=== PATIENT | female | born 1950 | race Caucasian/White ===

== ENCOUNTER 2020-02-02 17:27 | Emergency (ER) | payer MEDICARE ==
[~2020-02-02] VITALS: Ht 152.4 cm; Wt 70.8 kg
[2020-02-02] MEDS ORDERED: CYMBALTA60 M1 PO (19:01)
[2020-02-02 20:35] LABS: BASO # 0.1 (0.02-0.10); EOS # 0.4 (0.04-0.40); EOS % 5.6 % (1.0-5.0); HEMATOCRIT 40.2 % (37.0-47.0); HEMOGLOBIN 13.3 g/dL (12.5-16.0); LYMPH# 2.2 (1.50-4.00); MEAN CELL VOLUME 87 fl (78-100); MEAN CORPUSCULAR HEMOGLOBIN 29 pg (27-31); MEAN CORPUSCULAR HGB CONC 33 g/dL (33-37); MEAN PLATELET VOLUME 9.6 fl (7.4-10.4); MONO # 0.7 (0.20-0.80); NEU # 4.4 (1.40-6.50); PLATELET COUNT 319 K/mm3 (130-400); RED BLOOD COUNT 4.63 M/mm3 (4.10-5.30); RED CELL DISTRIBUTION WIDTH 13.1 % (11.5-14.5); WHITE BLOOD COUNT 7.9 K/mm3 (4.8-10.8)
[2020-02-02 20:40] LABS: POTASSIUM 4.2 mmol/L (3.5-5.1)
[2020-02-02 20:41] LABS: CALCIUM 9.4 mg/dL (8.3-10.5)
[2020-02-02 20:43] LABS: TOTAL PROTEIN 6.9 g/dL (6.2-8.1)
[2020-02-02 20:44] LABS: TOTAL BILIRUBIN 0.2 mg/dL (0.2-1.2)
[2020-02-02 20:57] LABS: URINE APPEARANCE CLEAR; URINE BILIRUBIN NEGATIVE (NEGATIVE); URINE BLOOD TRACE (NEGATIVE); URINE COLOR YELLOW; URINE GLUCOSE NEGATIVE (NEGATIVE); URINE KETONE NEGATIVE (NEGATIVE); URINE NITRATE NEGATIVE (NEGATIVE); URINE PROTEIN(semi-quant) NEGATIVE (NEGATIVE); URINE UROBILINOGEN NORMAL (NORMAL)
[2020-02-02 20:58] LABS: URINE LEUKOCYTE ESTERASE TRACE (NEGATIVE)
[2020-02-02] MEDS ORDERED: CEFDINIR300 MG PO (21:36)
[2020-02-02 22:17] VITALS: BP 126/79
== END 2020-02-02 21:58 | disposition home or self-care (01) ==
LOC: ED 17:27
PROVIDERS: Nurse Practitioner Family
DX: J32.9 Chronic sinusitis, unspecified (principal); R11.0 Nausea; R53.83 Other fatigue; F32.9 Major depressive disorder, single episode, unspecified; F17.210 Nicotine dependence, cigarettes, uncomplicated; Z90.5 Acquired absence of kidney; Z91.041 Radiographic dye allergy status; Z88.2 Allergy status to sulfonamides; Z86.19 Personal history of other infectious and parasitic diseases; Z20.828 Contact with and (suspected) exposure to other viral communicable diseases
CPT/HCPCS: J2405; J7030